=== PATIENT | female | born 1965 | race Two or more races ===

== ENCOUNTER 2019-02-14 12:17 | Day surgery (SDC) | payer OTHER ==
[2019-02-14] MEDS ORDERED: LIDOCAINE 2% (SDV) 5 ML INJ (13:48)
[2019-02-14] MEDS ORDERED: PROPOFOL 60 ML (13:48)
== END 2019-02-14 16:06 | disposition home or self-care (01) ==
LOC: GIL 12:17
DX: Z12.11 Encounter for screening for malignant neoplasm of colon (principal); D12.5 Benign neoplasm of sigmoid colon; K57.30 Diverticulosis of large intestine without perforation or abscess without bleeding; K64.8 Other hemorrhoids; I10 Essential (primary) hypertension
CPT/HCPCS: 45380; 88305